=== PATIENT | female | born 1950 ===

== ENCOUNTER 2021-06-11 00:46 | Emergency (ER) | payer MEDICARE ==
[2021-06-11 00:54] VITALS: BP 169/98; PULSE 69; RESP 20; TEMP 98.2
--- NOTE | 2021-06-11 01:27 | ED ---
Recheck HPI - General Chief Complaint: Recheck/Abnormal Lab/Rx Stated Complaint: Covid Test Time Seen by Provider: 06/11/21 01:23 Source: patient, family Mode of arrival: ambulatory Limitations: language barrier - History of Present Illness Initial Comments: 71-year-old feel presenting for Covid testing. She needs this for international travel. No other complaints - Related Data Allergies Allergy/AdvReac Type Severity Reaction Status Date / Time No Known Allergies Allergy Verified 06/11/21 00:54 Review of Systems ROS Statement: Those systems with pertinent positive or pertinent negative responses have been documented in the HPI. ROS Other: All systems not noted in ROS Statement are negative. Past Medical History Past Medical History: Hypertension History of Any Multi-Drug Resistant Organisms: None Reported Past Surgical History: No Surgical Hx Reported Past Psychological History: No Psychological Hx Reported Smoking Status: Never smoker Past Alcohol Use History: None Reported Past Drug Use History: None Reported General Exam Limitations: language barrier General appearance: alert, in no apparent distress Head exam: Present: atraumatic Eye exam: Present: normal appearance Pupils: Present: normal accommodation ENT exam: Present: normal exam Neck exam: Present: normal inspection Respiratory exam: Present: normal lung sounds bilaterally Cardiovascular Exam: Present: regular rate, normal rhythm, normal heart sounds Extremities exam: Present: normal inspection Back exam: Present: normal inspection Neurological exam: Present: alert, oriented X3 Psychiatric exam: Present: normal affect, normal mood Skin exam: Present: dry, normal color Course Vital Signs 06/11/21 00:52 Temperature 98.2 F Pulse Rate 69 Respiratory 20 Rate Blood Pressure 169/98 O2 Sat by Pulse 98 Oximetry Medical Decision Making - Medical Decision Making Negative Covid - Lab Data Lab Results 06/11/21 Range/Units 00:54 Coronavirus (PCR) Not Detected (Not Detectd) Disposition Clinical Impression: Lab test negative for COVID-19 virus Disposition: HOME SELF-CARE Condition: Stable Instructions (If sedation given, give patient instructions): Coronavirus Disease 2019 (COVID-19) Additional Instructions: Please return to the Emergency Department if symptoms worsen or any other concerns. Is patient prescribed a controlled substance at d/c from ED?: No Referrals: None,Stated [Primary Care Provider] - 1-2 days Time of Disposition: 01:27
== END 2021-06-11 01:50 | disposition home or self-care (01) ==
LOC: EC 00:46
DX: I10 Essential (primary) hypertension (principal); Z20.822 Contact with and (suspected) exposure to COVID-19
CPT/HCPCS: 87635; 99282